=== PATIENT | male | born 1985 | race Caucasian/White ===

== ENCOUNTER 2016-05-23 22:41 | Emergency (ER) | payer BC ==
[~2016-05-23] VITALS: Ht 175.3 cm; Wt 115.7 kg
[~2016-05-23 22:41] MED LIST: CYCLOBENZAPRINE10 MG PO; MOTRIN800 MG PO; OXYCODONE HCL15 MG PO; OXYCONTIN30 MG PO; no home
[2016-05-24] MEDS ORDERED: MOTRIN800 MG PO (00:39)
[2016-05-24 01:02] VITALS: BP 125/86
== END 2016-05-24 01:02 | disposition home or self-care (01) ==
LOC: EME 22:41
DX: S67.21XA Crushing injury of right hand, initial encounter (principal); W10.9XXA Fall (on) (from) unspecified stairs and steps, initial encounter
CPT/HCPCS: 73130; 99281; 99284

== ENCOUNTER 2016-07-06 20:13 | Emergency (ER) | payer BC ==
[~2016-07-06] VITALS: Ht 177.8 cm; Wt 117.3 kg
[2016-07-06] MEDS ORDERED: FIORICET,ESG1 TABLET PO (22:21)
[2016-07-06 22:49] VITALS: BP 115/70
== END 2016-07-06 22:51 | disposition home or self-care (01) ==
LOC: EME 20:13
DX: R51 Headache (principal); M54.5 Low back pain; G89.29 Other chronic pain; Z98.1 Arthrodesis status; Z79.891 Long term (current) use of opiate analgesic; Z87.891 Personal history of nicotine dependence
CPT/HCPCS: 70450; 99281; 99284; J0780; J1100